=== PATIENT | male | born 1975 | race Caucasian/White ===

== ENCOUNTER 2018-01-24 12:35 | Emergency (ER) | payer SELFPAY ==
[~2018-01-24] VITALS: Ht 177.8 cm; Wt 72.6 kg
[2018-01-24] MEDS ORDERED: PRD20T PO (14:52)
[2018-01-24] MEDS ORDERED: CEFU500T63 PO (14:52)
--- NOTE | 2018-01-24 14:52 | ED Cough/URI ---
General Chief Complaint: Cough/Cold/Flu Symptoms Stated Complaint: CONGESTION;TROUBLE BREATHING Nursing Triage Note: Pt reports cough, congestion, sinus pressure x6 days Source: patient Exam Limitations: no limitations History of Present Illness Date Seen by Provider: Jan 24, 2018 Time Seen by Provider: 14:50 Initial Comments To ER with reports of a productive cough, nasal congestion, frontal sinus pressure for about 6 days. No fevers. Timing/Duration: just prior to arrival Severity/Quality: productive cough Associated Symptoms: cough Allergies and Home Medications Patient Home Medication List Home Medication List Reviewed: Yes Review of Systems Review of Systems Constitutional: see HPI; No chills, No fever EENTM: see HPI Respiratory: see HPI, cough Cardiovascular: no symptoms reported Genitourinary: no symptoms reported Musculoskeletal: no symptoms reported Skin: no symptoms reported Psychiatric/Neurological: No Symptoms Reported Hematologic/Lymphatic: No Symptoms Reported Past [id number]-Cyfwey-Uucrmp Hx Patient Social History Recent Foreign Travel: No Contact w/Someone Who Travel: No Recent Infectious Disease Expo: No Physical Exam Vital Signs - First Documented 01/24/18 13:41 Temp 97.8 Pulse 71 Resp 18 B/P (MAP) 149/96 (113) Pulse Ox 99 O2 Delivery Room Air Capillary Refill : Less Than 3 Seconds Height: 5'10.00" Weight: 160lbs. oz. 72.797972tw; BMI Method:Stated General Appearance: WD/WN, no apparent distress Eyes: Bilateral Eye Normal Inspection, Bilateral Eye PERRL, Bilateral Eye EOMI HEENT: PERRL/EOMI, normal ENT inspection Neck: non-tender, full range of motion Respiratory: lungs clear, normal breath sounds, no respiratory distress, no accessory muscle use Gastrointestinal: normal bowel sounds, non tender, soft Neurologic/Psychiatric: alert, normal mood/affect, oriented x 3 Skin: normal color, warm/dry Progress/Results/Core Measures Suspected Sepsis Recent Fever Within 48 Hours: Yes Infection Criteria Present: Suspected New Infection New/Unexplained Altered Menta: No Sepsis Screen: No Definite Risk SIRS Temperature:97.8 Pulse: 71 Respiratory Rate: 18 Blood Pressure 149 /96 Mean: 113 Results/Orders My Orders Orders - LEONARDO PURI APRN Influenza A And B Antigens (01/24/18 14:44) Rapid Strep A Screen (01/24/18 14:44) Vital Signs/I&O 01/24/18 13:41 Temp 97.8 Pulse 71 Resp 18 B/P (MAP) 149/96 (113) Pulse Ox 99 O2 Delivery Room Air Capillary Refill : Less Than 3 Seconds Blood Pressure Mean: 113 Departure Impression Primary Impression: Sinusitis Disposition: 01 HOME, SELF-CARE Condition: Stable Departure-Patient Inst. Decision time for Depature: 14:51 Referrals: UNKNOWN (PCP) Primary Care Physician Patient Instructions: Sinusitis in Adults Add. Discharge Instructions: 1. Antibiotics and steroids as directed 2. Follow-up with your doctor next week 3. Return to ER for any concerns All discharge instructions reviewed with patient and/or family. Voiced understanding. Scripts Prednisone (Prednisone) 20 Mg Tab 40 MG PO DAILY, #6 TAB Prov: LEONARDO PURI ON AIR HOST 01/24/18 Cefuroxime Axetil (Cefuroxime) 500 Mg Tablet 500 MG PO BID, #14 TAB Prov: LEONARDO PURI ON [employer] 01/24/18 LEONARDO PURI ON [employer] HOST Jan 24, 2018 14:52
[2018-01-24 15:33] VITALS: BP 149/96
--- NOTE | 2018-01-24 15:39 | Diagnostic Imaging Report ---
EXAMINATION: PA and lateral chest at 3:23 p.m. INDICATION: Cough. COMPARISON: There are no prior studies available for comparison. FINDINGS: The heart size is within normal limits. The lungs are clear. There is no evidence for failure, pneumonia, or for pleural effusion. The mediastinum is not widened. The osseous structures are intact. IMPRESSION: There is no evidence for an acute cardiopulmonary abnormality. Dictated by: Dictated on workstation # [id number]
== END 2018-01-24 15:34 | disposition home or self-care (01) ==
LOC: ER 12:36
DX: J32.9 Chronic sinusitis, unspecified (principal)
CPT/HCPCS: 71046; 87804